=== PATIENT | male | born 1945 | race Caucasian/White ===

== ENCOUNTER 2019-12-08 07:46 | Outpatient (CLI) | payer MEDICARE | END 2019-12-08 23:59 | disposition home or self-care (01) | LOC: CFH 07:46 | PROVIDERS: ATTEND Internal Medicine Clinical Cardiac Electrophysiology | DX: I08.2 Rheumatic disorders of both aortic and tricuspid valves (principal); I47.1 Supraventricular tachycardia; I48.91 Unspecified atrial fibrillation | CPT/HCPCS: 78452; 93017; 93306; A9502 ==

== ENCOUNTER 2020-04-19 05:56 | Day surgery (SDC) | payer MEDICARE ==
[~2020-04-19] VITALS: Ht 172.7 cm; Wt 68.2 kg
[2020-04-19 06:19] VITALS: BP 113/70
[2020-04-19] MEDS ORDERED: SODIUM CHLORIDE 0.9% 1,000 ML IV SCH (06:30)
[2020-04-19] MEDS ORDERED: ATOR20TA37 PO (06:37)
[2020-04-19 06:50] LABS: BASOPHILS % (AUTO) 2 % (0-1); EOSINOPHILS % (AUTO) 4 % (1-7); LYMPHOCYTES % (AUTO) 23 % (22-44); MEAN CORPUSCULAR HEMOGLOBIN 31.3 pg (27.5-34.5); MEAN CORPUSCULAR HGB CONC 34.1 g/dL (33.2-36.2); MEAN PLATELET VOLUME 8.8 fL (7.4-10.4); MONOCYTES % (AUTO) 8 % (2-9); NEUTROPHILS % (AUTO) 63 % (42-75); PLATELET COUNT 275 x10^3/uL (130-400); RED BLOOD COUNT 4.64 x10^6/uL (4.38-5.82); RED CELL DISTRIBUTION WIDTH 12.6 % (9.4-14.8)
[2020-04-19 06:52] LABS: MD NO
[2020-04-19 06:56] LABS: INTERNATIONAL NORMALIZED RATIO 1.04 (0.93-1.1)
[2020-04-19 06:59] LABS: ANION GAP 10 mmol/L (5-15); CALCIUM 8.4 mg/dL (8.5-10.1); CHLORIDE 112 mmol/L (98-107); CREATININE 1.18 mg/dL (0.7-1.3)
[2020-04-19] MEDS ORDERED: MIDAZOLAM 1 MG/ML, 2ML ONE (07:12)
[2020-04-19] MEDS ORDERED: ISOPROTERENOL 0.2MG/ML, 5ML ONE (07:13)
[2020-04-19] MEDS ORDERED: FENTANYL PF 100 MCG/2ML ONE (07:13)
[2020-04-19] MEDS ORDERED: LIDOCAINE 1%, 20ML ONE (07:13)
[2020-04-19] MEDS ORDERED: APIXABAN 5 MG TABLET PO SCH (21:00)
[2020-04-20] MEDS ORDERED: METOPROLOL SUCCINATE 25 MG TAB.ER.24H PO SCH (06:00)
== END 2020-04-19 14:10 | disposition home or self-care (01) ==
LOC: CACL 05:56
PROVIDERS: ATTEND Internal Medicine Clinical Cardiac Electrophysiology
DX: I47.1 Supraventricular tachycardia (principal); I48.91 Unspecified atrial fibrillation; I48.92 Unspecified atrial flutter; F12.10 Cannabis abuse, uncomplicated; Z79.899 Other long term (current) drug therapy; Z88.2 Allergy status to sulfonamides
CPT/HCPCS: 36415; 71046; 80048; 85025; 85610; 93005; 93613; 93620; 93623; 99156; 99157; C1730; C1894; J2250; J3010